=== PATIENT | female | born 1995 ===

== ENCOUNTER 2017-07-30 06:51 | Emergency (ER) | payer SELFPAY ==
[~2017-07-30] VITALS: Ht 167.6 cm; Wt 124.0 kg
[2017-07-30 07:03] VITALS: Ht 167.6 cm; Wt 124.0 kg
--- NOTE | 2017-07-30 07:41 | ERD ---
ER Documentation Chief Complaint Date/Time DATE: 07/30/17 TIME: 07:36 Chief Complaint CAME IN VIA INTAKE DUE TO VOMITING TWICE LAST NIGHT AND AP WITH HIGH BP NOW HPI Patient is a 21-year-old female who presents with sudden onset, constant, severe , dull epigastric and right upper quadrant pain since yesterday evening. Symptoms started approximately 2 hours after eating [place] wings. The patient has had 2 episodes of vomiting since this time. She denies fever, diarrhea, constipation, dysuria, flank pain. She denies prior episodes of similar pain. Patient states that the pain has improved somewhat since onset. The patient reports being told that she had elevated blood pressure prior to having wisdom teeth removed 2 months ago. She states she has lost some weight since that time and thinks her blood pressure has improved. She is not being followed by primary physician. ROS All systems reviewed and are negative except as per history of present illness. Medications Home Meds Active Scripts Famotidine* (Pepcid*) 20 Mg Tablet, 20 MG PO DAILY, #20 TAB Prov:ASHLEY HOOKS MD 07/30/17 Ondansetron Hcl* (Zofran*) 4 Mg Tablet, 4 MG PO Q8H Y for NAUSEA AND/OR VOMITING , #15 TAB Prov:ASHLEY HOOKS MD 07/30/17 PMhx/Soc Past medical history: None Past surgical history: None Social history: Drinks occasional alcohol, denies tobacco. Last alcohol use 3 weeks ago. Medical and Surgical Hx: pt denies Medical Hx, pt denies Surgical Hx History of Surgery: No Anesthesia Reaction: No Hx Neurological Disorder: No Hx Respiratory Disorders: No Hx Cardiac Disorders: No Hx Psychiatric Problems: No Hx Miscellaneous Medical Probl: No Hx Alcohol Use: Yes (OOC) Hx Substance Use: No Hx Tobacco Use: No Smoking Status: Never smoker FmHx Family History: No coronary disease, No diabetes Physical Exam Vitals Vital Signs Date Time Temp Pulse Resp B/P Pulse Ox O2 Delivery O2 Flow Rate FiO2 07/30/17 09:47 98.4 62 16 141/89 100 Room Air 07/30/17 07:26 98.4 58 16 138/88 100 Room Air 07/30/17 07:03 97.4 63 18 169/107 98 Physical Exam Const: Alert, no acute distress Head: Atraumatic Eyes: Normal Conjunctiva, No pallor, no icterus ENT: Normal External Ears, Nose and Mouth. Mucous membranes moist Neck: Full range of motion..~ No meningismus. Resp: Clear to auscultation bilaterally, No wheezes, no rales Cardio: Regular rate and rhythm, no murmurs Abd: Soft, Obese, Mild right upper quadrant tenderness without guarding or rebound, nondistended Skin: No petechiae or rashes Back: No midline or flank tenderness Ext: No cyanosis, or edema Neur: Awake and alertCranial nerves II through XII intact bilaterally, strength and sensation full in 4 extremities. Psych: Normal Mood and Affect Result Diagram: 07/30/1774307/30/17743 Results 24 hrs Laboratory Tests Test 07/30/17 07:40 07/30/17 07:44 Urine Color YELLOW Urine Clarity SLIGHTLY CLOUDY Urine pH 9.0 Urine Specific [place] 1.018 Urine Ketones NEGATIVEmg/dL Urine Nitrite NEGATIVEmg/dL Urine Bilirubin NEGATIVEmg/dL Urine Urobilinogen 2+mg/dL Urine Leukocyte Esterase TRACELeu/ul Urine Microscopic RBC 7/HPF Urine Microscopic WBC 5/HPF Urine Squamous Epithelial Cells FEW/HPF Urine Bacteria FEW/HPF Urine Hemoglobin 1+mg/dL Urine Glucose NEGATIVEmg/dL Urine Total Protein 1+mg/dl White Blood Count 5.510^3/ul Red Blood Count 5.0510^6/ul Hemoglobin 14.4g/dl Hematocrit 44.8% Mean Corpuscular Volume 88.7fl Mean Corpuscular Hemoglobin 28.5pg Mean Corpuscular Hemoglobin Concent 32.1g/dl Red Cell Distribution Width 13.9% Platelet Count 55934^3/UL Mean Platelet Volume 12.3fl Neutrophils % 61.3% Lymphocytes % 27.3% Monocytes % 9.5% Eosinophils % 0.6% Basophils % 0.7% Nucleated Red Blood Cells % 0.0/100WBC Neutrophils # 3.310^3/ul Lymphocytes # 1.510^3/ul Monocytes # 0.510^3/ul Eosinophils # 0.010^3/ul Basophils # 0.010^3/ul Nucleated Red Blood Cells # 0.010^3/ul Prothrombin Time 12.3Sec Prothrombin Time Ratio 1.0 INR International Normalized Ratio 0.91 Sodium Level 144mmol/L Potassium Level 4.7mmol/L Chloride Level 104mmol/L Carbon Dioxide Level 31mmol/L Anion Gap 14 Blood Urea Nitrogen 11mg/dl Creatinine 0.73mg/dl Glucose Level 93mg/dl Calcium Level 9.2mg/dl Total Bilirubin 1.2mg/dl Direct Bilirubin 0.00mg/dl Indirect Bilirubin 1.2mg/dl Aspartate Amino Transf (AST/SGOT) 429IU/L Alanine Aminotransferase (ALT/SGPT) 377IU/L Alkaline Phosphatase 118IU/L Total Protein 8.4g/dl Albumin 4.4g/dl Globulin 4.00g/dl Albumin/Globulin Ratio 1.10 Lipase 406U/L Serum HCG, Qualitative NEGATIVE Procedures/MDM EKG read by me: Time 751, rate 54 Rhythm: Sinus bradycardia [place]: Normal Intervals: Normal ST-T waves: no ischemic changes Ectopy: No Q-waves: No Impression: No evidence of ischemia or arrhythmia MDM: Patient is a 21-year-old female who presents with acute right upper quadrant and epigastric pain since yesterday associated with 2 episodes of vomiting. Symptoms began shortly after eating a fatty meal. Ultrasound shows no evidence of gallstones or choledocholithiasis. Labs show elevated AST and ALT and mild elevation of lipase that is not consistent with acute pancreatitis. The patient is tolerating oral intake without significant symptoms. She has a relatively benign abdominal exam and states that her pain is improving. Ultrasound shows evidence of hepatic steatosis, which may be the cause of the patient's pain. I will give her a prescription for Pepcid and Zofran, and advised her on return precautions and the need for close PMD follow- up. I also advised her of the need to advance diet gradually and eat a low-fat diet. I cannot exclude the possibility of another etiology of the patient's hepatitis. Departure Diagnosis: Primary Impression: Abdominal pain Abdominal location: right upper quadrant Qualified Code: R10.11 - Right upper quadrant abdominal pain Additional Impression: Hepatic steatosis Condition: ASHLEY Aquino MD Jul 30, 2017 07:41
[2017-07-30 08:23] LABS: BASOPHILS % 0.7 % (0.0-2.0); EOSINOPHILS % 0.6 % (0.0-7.0); HEMATOCRIT 44.8 % (37.0-47.0); HEMOGLOBIN 14.4 g/dl (12.0-16.0); LYMPHOCYTES # 1.5 10^3/ul (0.8-2.9); LYMPHOCYTES % 27.3 % (15.0-51.0); MEAN CORPUSCULAR HEMOGLOBIN 28.5 pg (29.0-33.0); MEAN CORPUSCULAR HGB CONC 32.1 g/dl (32.0-37.0); MEAN CORPUSCULAR VOLUME 88.7 fl (82.0-101.0); MEAN PLATELET VOLUME 12.3 fl (7.4-10.4); MONOCYTE # 0.5 10^3/ul (0.3-0.9); MONOCYTES % 9.5 % (0.0-11.0); NEUTROPHIL # 3.3 10^3/ul (1.6-7.5); NEUTROPHILS % 61.3 % (39.0-77.0); PLATELET COUNT 275 10^3/UL (140-415); RED BLOOD COUNT 5.05 10^6/ul (4.20-5.40); RED CELL DISTRIBUTION WIDTH 13.9 % (11.5-14.5); WHITE BLOOD COUNT 5.5 10^3/ul (4.8-10.8)
--- NOTE | 2017-07-30 08:37 | RADRPT ---
PROCEDURE: Right Upper Quadrant Ultrasound. CLINICAL INDICATION: Abdominal Pain TECHNIQUE: Multiple real-time images were acquired of the patient's right upper quadrant abdomen a nd retroperitoneum utilizing a high resolution transducer. COMPARISON: None FINDINGS: The liver measures 19.7 cm, and demonstrates mildly increased echogenicity and coarsened echotexture . The main portal vein is patent with proper directional flow. There is no intrahepatic biliary duct al dilatation. The extrahepatic common bile duct measures 6 mm. The gallbladder is without stones, wall thickening, or pericholecystic fluid. The visualized pancreas is unremarkable. The right kidney measures 11.9 cm and demonstrates normal echotexture. There is no right renal calcu micaela or hydronephrosis. The visualized abdominal aorta and IVC are grossly unremarkable. IMPRESSION: The liver is enlarged and demonstrates mildly increased echogenicity and coarsened echotexture which are nonspecific, but can be seen with mild fatty infiltration as well as early chronic liver diseas e. No definite morphologic changes of cirrhosis are identified. The main portal vein is patent with proper directional flow. No cholelithiasis or acute cholecystitis. Normal CBD. RPTAT: EE Physician Saira Date Time Electronically viewed and signed by Physician Saira on 07/30/2017 08:37 /
[2017-07-30 08:48] LABS: INR 0.91; PROTIME 12.3 Sec (12.2-14.2)
[2017-07-30 08:50] LABS: ALBUMIN 4.4 g/dl (3.3-4.9); ALBUMIN/GLOBULIN RATIO 1.1; BILIRUBIN,INDIRECT 1.2 mg/dl (0-1.1); BILIRUBIN,TOTAL 1.2 mg/dl (0.2-1.3); CALCIUM 9.2 mg/dl (8.4-10.2); CREATININE 0.73 mg/dl (0.44-1.00); POTASSIUM 4.7 mmol/L (3.5-5.1); TOTAL PROTEIN 8.4 g/dl (6.1-8.1)
[2017-07-30] MEDS ORDERED: FAMO-96 PO (09:16)
[2017-07-30] MEDS ORDERED: ONDA4TAB8 PO (09:16)
[2017-07-30 09:40] LABS: ADD UMIC YES; UR ASCORBIC ACID NEGATIVE (NEGATIVE); UR BACTERIA FEW /HPF (NONE SEEN); UR BILIRUBIN (Dip) NEGATIVE (NEGATIVE); UR BLOOD (Dip) 1+ mg/dL (NEGATIVE); UR CLARITY SLIGHTLY CLOUDY (CLEAR); UR COLOR YELLOW (YELLOW); UR GLUCOSE (Dip) NEGATIVE (NEGATIVE); UR KETONES (Dip) NEGATIVE (NEGATIVE); UR LEUKOCYTE ESTERASE (Dip) TRACE Leu/ul (NEGATIVE); UR NITRITE (Dip) NEGATIVE (NEGATIVE); UR RBC 7 /HPF (0-5); UR SPECIFIC GRAVITY (Dip) 1.018 (1.003-1.030); UR SQUAMOUS EPITHELIAL CELL FEW /HPF (FEW); UR TOTAL PROTEIN (Dip) 1+ mg/dl (NEGATIVE); UR UROBILINOGEN (Dip) 2+ mg/dL (NEGATIVE)
[2017-07-30 09:47] VITALS: BP 141/89; PULSE 62; RESP 16; TEMP 98.4
== END 2017-07-30 09:54 | disposition home or self-care (01) ==
LOC: E/R 06:51
DX: K76.0 Fatty (change of) liver, not elsewhere classified (principal); R10.11 Right upper quadrant pain
CPT/HCPCS: 76705; 80053; 81001; 83690; 84703; 85025; 85610; 93005